=== PATIENT | male | born 1985 | race Caucasian/White ===

== ENCOUNTER 2023-12-11 10:21 | Emergency (ER) | payer OTHER, SELFPAY ==
[2023-12-11] VITALS (8 sets, daily range): BP systolic 101–136; BP diastolic 52–80; PULSE 82–119; RESP 15–18; TEMP 36.5–36.8; O2SAT 95–98; BMI 21.9
--- NOTE | 2023-12-11 10:27 | PC.NURSE ---
Spouse at BS
--- NOTE | 2023-12-11 10:30 | PC.NURSE ---
PT PROVIDED PEANUT BUTTER, CRACKERS, CHIPS, OJ AND PEPSI. TOLERATING WELL. AT BEDSIDE. CALL LIGHT WITHIN REACH
--- NOTE | 2023-12-11 10:38 | ECG_ITS ---
APPROVED REPORT Exam: Resting ECG HR:103 bpm ECG Measurements Heart Rate 103 AXES HI 172 P 31 QRSd 87 QRS 55 QT 328 T 40 QTc 388 Conclusion SINUS TACHYCARDIA ABNORMAL RHYTHM ECG Electronically signed by : MICHAELLE LEVI, 12/11/2023 16:56:58
--- NOTE | 2023-12-11 11:00 | PC.NURSE ---
FSBS 65, PT A&O X 4, REPORTS NAUSEA. DR LEVI NOTIFIED. ORDERS FOR D10 @ 50MLS/HR R/V
[2023-12-11] MEDS: DEXTROSE 10 % IN WATER 500 ML 50 ML IV (11:12)
--- NOTE | 2023-12-11 11:32 | HMH.EDGENADL ---
Discharge Plan Disposition Patient Disposition: Home, Self-Care Condition: Good Prescriptions Prescriptions: No Action atorvastatin 10 MG tablet 10 mg PO HS lisinopril 5 MG tablet 5 mg PO DAILY Patient Comments: TAKE 1 TABLET BY MOUTH EVERY DAY insulin detemir U-100 100 UNIT/ML insulin pen 100 units SQ TID Patient Comments: INJECT 80 UNITS UNDER THE SKIN INTO THE APPROPRIATE AREA DIRECTED DAILY. Referrals Follow up/Referrals: Kentrell Ennis [Primary Care Provider] - See instructions Activity Restrictions/Add. Instructions Additional Instructions/Restrictions: You were evaluated in the emergency department today. Please keep a very close eye on your blood sugar at home. Do not take your insulin if you have low blood sugar or if you have not eaten. Follow-up closely with your primary care provider. Let them know that this happened, as they may want to adjust her insulin dosage. Return to the emergency department for new or worsening symptoms, such as recurrence of low blood sugar. Clinical Impressions Clinical Impression: Hypoglycemia Stand Alone Forms Stand Alone Forms: Work/School Release Instructions Patient Instructions: Insulin, DI for Hypoglycemia Discharge ED Provider: Lala Winston General Adult HPI General Chief complaint: Hyper/Hypoglycemia Stated complaint: Hypoglycemia Time Seen by Provider: 12/11/23 10:25 Mode of Arrival: EMS Source of Information: Patient and EMS Limitations: No Limitations Description of Symptoms (Recalled from ER Triage Doc. by RN): PT ARRIVES VIA EMS FOR FSBS 23 AT WORK, EMS REPORTS PT DIAPHORETIC, ALTERED AT SCENE. 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 RECEIVED 2- D50 AMPULES. PT HAS HAD CHANGE IN INSULIN, CURRENTLY ON LANTUS History of Present Illness HPI narrative: This patient is a 38-year-old male with a history of insulin-dependent diabetes presenting to the emergency department for evaluation with concern for hypoglycemia. Patient reports that he took his insulin this morning without eating. He took his normal dose and did not increase the dose. He states that he was fine prior to taking the insulin without any infectious symptoms. His blood sugar change, and he is not sure exactly what happened but he knows he bit his lip. This happened at work. EMS arrived on scene and noted fingerstick glucose was 23. He was given 1 amp of D50 with improvement in his blood glucose, however it dropped again, resulting in him receiving a second amp of D50 en route. Patient states he feels weak and shaky but denies any other concerns or complaints at this time. Related Data Home Medications Medication Instructions Recorded Confirmed atorvastatin 10 mg tablet 10 mg PO HS Cholesterol 02/20/19 02/20/19 insulin detemir U-100 100 unit/mL 100 units SQ TID Diabetes 02/20/19 02/20/19 (3 mL) subcutaneous pen lisinopril 5 mg tablet 5 mg PO DAILY bp 02/20/19 02/20/19 Allergies Allergy/AdvReac Type Severity Reaction Status Date / Time No Known Allergies Allergy Verified 02/20/19 06:18 [facility] Disclaimer: The information contained in this section may have been updated after the patient was seen, as this information can be updated by other users. Social History Smoking Status: Current every day smoker alcohol intake: current alcohol intake frequency: a few times a week current occupational status: employed Travel in the last 8 weeks: None ROS Obtained: Yes All systems reviewed & no additional complaints except as documented Physical Exam General General appearance: alert and in no apparent distress Head Head exam: atraumatic and normocephalic Eye Eye exam: Present normal appearance, PERRL and EOMI ENT ENT exam: Present normal oropharynx, mucous membranes moist, normal external ear exam and other (Superficial laceration on the mucosal aspect of the inside of the lower lip from biting his lip. No loose teeth.) Neck Neck exam: Present normal inspection, full ROM and trachea midline; Absent tenderness Chest Chest inspection: Present normal inspection and symmetric chest wall rise; Absent tenderness Respiratory Respiratory exam: Present normal lung sounds bilaterally; Absent respiratory distress, wheezes, stridor or accessory muscle use Cardiovascular Cardiovascular exam: Present regular rate and normal rhythm Abdominal Exam Abdominal exam: Present soft; Absent distention, tenderness or guarding Extremities Exam Extremities exam: Present normal inspection, full ROM and normal capillary refill; Absent tenderness or edema Back Exam Back exam: Present normal inspection and full ROM; Absent tenderness Neurological Exam Neurological exam: Present alert, oriented X3, CN II-XII intact and normal gait; Absent motor sensory deficit Psychiatric Psychiatric exam: Present normal affect and normal mood Skin Skin exam: Present warm and dry Medical Decision Making Medical Records Medical records reviewed: Yes I reviewed the patient's medical records. [place] Inquiry Pt receiving controlled substance: No Vital Signs: 12/11/23 10:21 12/11/23 10:30 12/11/23 11:00 Temperature 98.2 F Temperature Source Oral Pulse Rate 113 H 111 H Pulse Rate [Apical] 119 H Respiratory Rate 18 17 Blood Pressure 121/73 117/74 Blood Pressure [Right Arm] 136/73 Blood Pressure Mean 84 80 Blood Pressure Mean [Right Arm] 94 Blood Pressure Source [Right Arm] Automatic Cuff Blood Pressure Position Blood Pressure Position [Right Arm] Sitting 02 Sat by Pulse Oximetry 95 96 97 Oxygen Delivery Method Room Air Room Air Room Air 12/11/23 11:30 12/11/23 12:00 12/11/23 13:00 Temperature Temperature Source Pulse Rate 104 H 99 H 97 H Pulse Rate [Apical] Respiratory Rate 16 15 Blood Pressure 105/52 L 105/56 L 101/80 L Blood Pressure [Right Arm] Blood Pressure Mean 69 64 83 Blood Pressure Mean [Right Arm] Blood Pressure Source [Right Arm] Blood Pressure Position Blood Pressure Position [Right Arm] 02 Sat by Pulse Oximetry 97 96 98 Oxygen Delivery Method Room Air Room Air Room Air 12/11/23 13:30 12/11/23 14:34 Temperature 97.7 F Temperature Source Oral Pulse Rate 92 H 82 Pulse Rate [Apical] Respiratory Rate 17 18 Blood Pressure 119/62 109/67 L Blood Pressure [Right Arm] Blood Pressure Mean 79 Blood Pressure Mean [Right Arm] Blood Pressure Source [Right Arm] Blood Pressure Position Sitting Blood Pressure Position [Right Arm] 02 Sat by Pulse Oximetry 97 Oxygen Delivery Method Room Air Room Air Lab Data Lab results reviewed: Yes I reviewed the patient's lab results. Lab Results 12/11/23 10:29: WBC 6.7, RBC 4.10 L, Hgb 13.5 L, Hct 43.2, MCV 105.4 H, MCH 32.9 H, MCHC 31.3 L, RDW 12.8, Plt Count 329, MPV 9.0, Neut % (Auto) 68.8, Lymph % (Auto) 22.1, [place] % (Auto) 7.6, Eos % (Auto) 0.7, Baso % (Auto) 0.8, Neut # (Auto) 4.6, Lymph # (Auto) 1.5, [place] # (Auto) 0.5, Eos # (Auto) 0.1, Baso # (Auto) 0.1, Sodium 141, Potassium 3.4 L, Chloride 109 H, Carbon Dioxide 19 L, Anion Gap 16.4 H, BUN 15, Creatinine 0.80, Estimated Creat Clear 112, Estimated GFR 108, Est GFR ( Amer) 131, Glucose 102 H, Hemoglobin A1c 5.9, Calcium 9.4, Total Bilirubin 0.4, AST 60 H, ALT 69, Alkaline Phosphatase 74, Total Protein 7.1, Albumin 4.3, Globulin 2.8, Albumin/Globulin Ratio 1.5 12/11/23 12:31: Urine Color Yellow, Urine Appearance Clear, Urine pH 6.0, Ur Specific [place] >= 1.030, Urine Protein Trace, Urine Glucose (UA) Trace, Urine Ketones Negative, Urine Blood Negative, Urine Nitrate Negative, Urine Bilirubin Negative, Urine Urobilinogen 1.0, Ur Leukocyte Esterase Negative, Urine RBC None, Urine WBC Occasional, Ur Squamous Epith Cells None, Urine Bacteria Trace, Hyaline Casts Occasional 12/11/23 10:29 12/11/23 10:29 Orders (Tests/Meds): ED MEDICATIONS Discontinued Medications Generic Name Dose Route Start Last Admin Trade Name Freq PRN Reason Stop Dose Admin Dextrose/Water 500 mls @ 50 mls/hr 12/11/23 11:15 12/11/23 11:12 Dextrose 10% In Water 500ml IV 12/11/23 21:14 50 mls/hr .Q10H PRO Administration ORDERS Category Date Time Status Complete Blood Count Auto Diff Stat Lab 12/11/23 10:29 Completed Comprehensive Metabolic Panel Stat Lab 12/11/23 10:29 Completed Hemoglobin A1C Stat Lab 12/11/23 10:29 Completed UA [Urinalysis and Microscopic] Stat Lab 12/11/23 12:31 Completed ECG Data Tracing #1: I reviewed this ECG and interpreted as documented below: Sinus tachycardia with a ventricular rate of [address] changes concerning for ischemia. Normal axis and intervals. ECG initial impression date: 12/11/23 ECG initial impression time: 10:39 Medical Decision Narrative: In summary, this patient is a 38-year-old male presenting to the Emergency Department for evaluation of low blood sugar. Differential diagnoses considered include but are not limited to insulin misuse, sepsis, symptomatic hypoglycemia. Ruling out the most morbid conditions drove assessment. It should be noted patient's history includes insulin-dependent diabetes which may or may not be at goal therapy. This complicates all aspects of care by increasing patient's risk for morbidity. On exam, the patient is alert and oriented and is nontoxic-appearing. He is mildly tachycardic, but otherwise vitals are reassuring on cardiac telemetry. Fingerstick blood glucose upon arrival initially normal, however he dropped again to 60 despite eating and drinking juice. Workup included CBC, CMP, A1c, urinalysis, and EKG. He was started on D10 infusion at 50/h. Labs were obtained that demonstrated mild hypokalemia, mildly elevated anion gap, mildly low CO2. Normal CBC and normal urinalysis. At 1040, patient was placed in ED observation status pending serial fingerstick glucose monitoring to determine whether or not the patient would be appropriate for discharge versus admission. The patient was provided serial reevaluations and cardiac monitoring while awaiting ultimate disposition. On multiple subsequent reassessments, patient is blood glucose remained stable. He is eating and drinking well, and I was able to stop the D50. Blood mucosa remained stable after stopping. I had shared decision-making with the patient and offered admission for continued monitoring, however he states he is ready to go home. He advised that he we will keep a good eye on his blood sugar will come back if things get worse. Given this, patient deemed to be appropriate for discharge via patient directed discharge. He was given instructions to monitor his blood sugar, instructions to avoid taking his insulin without eating, and he was given strict return precautions. He was discharged after all questions were answered. This was at 1430 after 3 hours 50 min in ED observation. Critical Care Critical Care Time Critical Care Time: No
--- NOTE | 2023-12-11 11:35 | PC.NURSE ---
FSBS 149, DR LEVI NOTIFIED. CALL LIGHT WITHIN REACH. NO NEEDS AT THIS TIME. AT BEDSIDE
[2023-12-11 11:44] LABS: Basophils # 0.1 K/mm3 (0-0.2); Basophils % 0.8 % (0.1-2.0); Eosinophils # 0.1 K/mm3 (0.0-0.4); Eosinophils % 0.7 % (0.1-12.0); Hematocrit 43.2 % (42.0-52.0); Hemoglobin 13.5 g/dL (14.1-18.0); Lymphocytes # 1.5 K/mm3 (0.7-4.5); Lymphocytes % 22.1 % (10-50); Mean Corpuscular HGB Conc 31.3 g/dL (31.8-35.4); Mean Corpuscular Hemoglobin 32.9 pg (27.0-31.2); Mean Corpuscular Volume 105.4 fl (80-94); Monocytes # 0.5 K/mm3 (0.1-1.0); Monocytes % 7.6 % (1.7-9.3); Neutrophils # 4.6 K/mm3 (1.8-7.8); Neutrophils % 68.8 % (37.0-80.0); Platelet Count 329 K/mm3 (142-424); Red Cell Distribution Width 12.8 % (11.5-17.5); White Blood Count 6.7 K/mm3 (4.8-10.8)
[2023-12-11 11:45] LABS: Chloride 109 mmol/L (98-107); Potassium 3.4 mmoL/L (3.5-5.1); Sodium 141 mmol/L (136-145)
[2023-12-11 11:48] LABS: Alanine Aminotransferase 69 U/L (12-78); Albumin Level 4.3 g/dl (3.5-5.0); Albumin/Globulin Ratio 1.5 (1.1-1.8); Alkaline Phosphatase 74 U/L (38-126); Anion Gap 16.4 mEq/L (5-15); Aspartate Amino Transferase 60 U/L (17-59); Bilirubin,Total 0.4 mg/dl (0.2-1.3); Blood Urea Nitrogen 15 mg/dl (9-20); Carbon Dioxide 19 mmol/L (22.0-30.0); Creatinine Clearance Estimated 112 mL/min (50-200); Estimated Glomerular Filt Rate 108 ml/min (>60); GFR (African American) 131 ML/MIN (>60); Globulin 2.8 g/dL (1.3-3.2); Total Protein,Serum 7.1 g/dl (6.3-8.2)
[2023-12-11 11:49] LABS: Calcium 9.4 mg/dl (8.4-10.2); Glucose 102 mg/dl (74-100)
--- NOTE | 2023-12-11 12:08 | PC.NURSE ---
FSBS 138, DR LEVI NOTIFIED
[2023-12-11 12:35] LABS: Microscopic, Urine URINE MICROSCOPIC (MICROSCOPIC)
[2023-12-11 12:38] LABS: Appearance,Urine CLEAR (Clear); Bilirubin,Urine Negative (Negative); Blood, Urine Negative (Negative); Color,Urine YELLOW (Yellow); Glucose,Urine (UA) TRACE (Negative); Ketones,Urine Negative (Negative); Leukocyte Esterase,Urine Negative (Negative); Nitrate,Urine Negative (Negative); Protein,Urine TRACE (Negative); Specific Gravity, Urine >= 1.030 (1.005-1.030)
[2023-12-11 12:39] LABS: Hemoglobin A1C 5.9 % (4.0-6.0)
--- NOTE | 2023-12-11 13:05 | PC.NURSE ---
IVF'S STOPPED AT THIS TIME. PT SITTING ON SIDE OF BED, TOLERATING REGULAR DIET TRAY
[2023-12-11 13:10] LABS: Bacteria,Urine Trace /lpf; WBC,Urine Occasional #/hpf (0-3)
[2023-12-11 13:11] LABS: Hyaline Casts,Urine Occasional #/lpf (0)
== END 2023-12-11 14:52 | disposition home or self-care (01) ==
PROVIDERS: Emergency Provider Emergency Medicine; PCP Family Medicine
DX: E11.649 Type 2 diabetes mellitus with hypoglycemia without coma (principal); R53.1 Weakness; F17.210 Nicotine dependence, cigarettes, uncomplicated; S01.511A Laceration without foreign body of lip, initial encounter; R00.0 Tachycardia, unspecified; Z79.4 Long term (current) use of insulin; X58.XXXA Exposure to other specified factors, initial encounter
CPT/HCPCS: 80053; 81001; 83036; 85025; 93005; 96365; 96366; 99285

== ENCOUNTER 2024-04-05 15:48 | Outpatient (CLI) | payer OTHER, SELFPAY ==
[2024-04-06 10:13] LABS: Testosterone,Total 421 ng/dL (264-916)
== END 2024-04-05 23:59 | disposition home or self-care (01) ==
LOC: LAB 15:49
PROVIDERS: PCP Family Medicine; Visit Provider Family Medicine
DX: E29.1 Testicular hypofunction (principal)
CPT/HCPCS: 36415; 84403

== ENCOUNTER 2024-12-20 09:10 | Emergency (ER) | payer OTHER, SELFPAY ==
--- OUTSIDE RECORDS SUMMARY | 2021-07-20 08:16 | XMS_ITS | Encounter Summary ---
[facility] Address [address] [place] [address] Care Team Providers Care Software Systems Architect Name Role Phone Kentrell Ennis MD Primary Care Provider [phone] Reason for Referral * Hospital - Outpatient (Routine) - Closed Specialty Diagnoses / Procedures Referred By Contac t Referred To Contact Sleep Medicine Diagnoses Observed sleep apnea Snoring Daytime hypersomnolence Procedures Home Sleep Study Kentrell Ennis MD [address] [place] [address] Phone: tel: fax: Ralph Oh MD Phone: tel: fax: Referral ID Status Reason Start Date Expiration Date Visits Re quested Visits Authorized [id number] Closed 06/29/2021 08/27/2021 1 1 Reason for Visit * Hospital - Outpatient (Routine) - Closed Specialty Diagnoses / Procedures Referred By Contac t Referred To Contact Sleep Medicine Diagnoses Observed sleep apnea Snoring Daytime hypersomnolence Procedures Home Sleep Study Kentrell Ennis MD [address] [place] [address] Phone: tel: fax: Ralph Oh MD Phone: tel: fax: Referral ID Status Reason Start Date Expiration Date Visits Re quested Visits Authorized [id number] Closed 06/29/2021 08/27/2021 1 1 Encounter Details Date Type Department Care Team (Latest Contact Info) Description 07/20/2021 7:16 AM EST Hospital Encounter [facility] [address] [place] [address] Kentrell Ennis MD [address] [place] [address] Observed sleep apnea; Snoring; Daytime hypersomnolence Social History Tobacco Use Types Packs/Day Years Used Date Smoking Tobacco: Former Cigarettes 1 13 2 2019 Smokeless Tobacco: Never Alcohol Use Standard Drinks/Week Comments Yes 4 (1 standard drink = 0.6 oz pur e alcohol) up to 24 ilana=s/week PHQ-2 Answer Date Recorded Retired PHQ-9: Brief Depression Severity Measure Score 0 06/02/2022 PHQ-2 Answer Date Recorded Patient Health Questionnaire-2 Score 0 10/11/2024 Sex and Gender Information Value Date Recorded Sex Assigned at Not on file Legal Sex Male 12:04 PM EDT Gender Identity Not on file Sexual Orientation Not on file 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 Not on file Not on file Not on file documented as of this encounter Last Filed Vital Signs Vital Sign Reading Time Taken Comments Blood Pressure - - Pulse - - Temperature - - Respiratory Rate - - Oxygen Saturation - - Inhaled Oxygen Concentration - - Weight 78.5 kg (173 lb) 07/20/2021 7:25 AM EST Height 170.2 cm (5' 7 ) 07/20/2021 7:25 AM EST Body Mass Index 27.1 07/20/2021 7:25 AM EST documented in this encounter Functional Status documented as of this encounter Plan of Treatment Upcoming Encounters Date Type Department Care Team (Late st Contact Info) Description 01/17/2025 3:15 PM EDT Office Visit [facility] [address] [place] [id number] Kentrell Ennis MD [address] [place] [address] documented as of this encounter Procedures Procedure Name Priority Date/Time Associated Diagnosis Comments WATCHPAT Routine 07/22/2021 4:05 AM EST Observed sleep apnea Snoring Daytime hypersomnolence documented in this encounter Results * WATCHPAT (07/22/2021 4:05 AM EST) Narrative Ralph Oh MD - 07/22/2021 8:13 PM EST Polysomnography Report Patient Name: Dhaval Flores Interpreting Physician: Ralph Oh MD Date of : 1985 Referring Physician: No info available Primary Care Physician: Kentrell Ennis MD Date of Study: Clinical Information 36-year-old male followed by Dr. Ennis for type 2 diabetes mellitus, hypertension, and dyslipidemia. His noted that he was snoring and had apneas. Daytime somnolence was described. A home sleep apnea test was ordered by Dr. Ennis to further investigate the possibility of JOANNE. Methods used for Home Sleep Testing: Patient had a home sleep test using an WatchPat device that uses peripheral arterial tone to measure arterial volume changes at the fingertip showing sympathetic nervous system activation. Sleep stages are determined based on signal characteristics and built in actigraphy can help determine sleep/wake periods. Both signal attenuation and pulse rate determine arousals correlating with respiratory events, and the pulse oximeter sensor determines blood oxygen saturations. Snoring and body position is determined through an intergrated sensor measuring decibals and actigraphy. Home Sleep Testing Results TOTAL RECORDING TIME: Total Recording Time (TIB) (min): 424 minutes TOTAL MONITORING TIME: Total Sleep Time (TST)(min): 328 minutes SLEEP LATENCY: Sleep Latency (min): 11 Respiratory Data OBSTRUCTIVE APNEA INDEX No data recorded OBSTRUCTIVE APNEA TOTAL No data recorded CENTRAL APNEA INDEX Central Apnea Index (#/hr TST): 0.8 CENTRAL APNEA TOTAL Central Apnea Total : 4 MIXED APNEA INDEX No data recorded MIXED APNEA TOTAL No data recorded OBSTRUCTIVE HYPOPNEA INDEX No data recorded OBSTRUCTIVE HYPOPNEA TOTAL No data recorded TOTAL APNEA INDEX No data recorded AHI/GINO: AHI: 35.3 RDI: RDI (if applicable): 35.3 OCCURRENCE OF DAMI GAITAN Occurrence of Dami Gaitan Breathing: no DURATION OF DAMI GAITAN No data recorded Cardiac AVG HR DURING SLEEP Avg HR During Sleep: 72 bpm HIGHEST HR DURING SLEEP Highest HR During Sleep: 102 bpm Oximetry MIN SPO2 Min SpO2: 68 % O2 SATURATION, MEAN VALUE Arterial Oxygen Saturation, Mean Value (%): 92 % Diagnostic Respiratory Index Summary by Body Position Supine AHI/GINO, TOTAL AHI, TOTAL : 42.4 RDI, TOTAL RDI, TOTAL : 42.4 Duration (Min) No data recorded Left AHI/GINO, TOTAL No data recorded RDI, TOTAL No data recorded Duration (Min) No data recorded Right AHI/GINO, TOTAL AHI, TOTAL : 1.1 RDI, TOTAL RDI, TOTAL: 1.1 Duration (Min) No data recorded Prone AHI/GINO, TOTAL No data recorded RDI, TOTAL No data recorded Duration (Min) No data recorded Upright AHI/GINO, TOTAL No data recorded RDI, TOTAL No data recorded Duration (Min) No data recorded Impression: The study was technically adequate with 424 minutes of total recording time. Total sleep time was 5 hours 28 minutes. A 3% oxygen desaturation hypopnea rule was utilized for scoring. The AHI was severely elevated overall at 35.3. The majority of these events were obstructive in nature. The AHI was even higher during REM sleep at 56. Oxygen saturations averaged 90% with minimum saturation of 68% and he spent 19 cumulative minutes with oxygen saturations less than or equal to 88% throughout the night. Significant snoring was noted and the AHI was significantly higher in the supine position. - severe obstructive sleep apnea is present. - Oxygen desaturation is present. - Snoring is present. Plan: - Recommend trial of CPAP such as AutoSet with an 8 cm minimum an 18 cm maximum. - Recommend weight loss. - Recommend the patient avoid alcohol and sedatives close to bedtime. - Due to the severity of his JOANNE, CPAP therapy would be the preferred modality for treatment. Follow-up: The patient will follow up with Dr. Ennis as before for consideration of the above and potential treatment options. Electronically signed by: Ralph Oh MD 07/22/21 20:08 EST us Kentrell nEnis MD SLEEP CENTER ORDERABLES Final R esult documented in this encounter Visit Diagnoses Diagnosis Observed sleep apnea Snoring Other dyspnea and respiratory abnormality Daytime hypersomnolence documented in this encounter Care Teams Software Systems Architect Relationship Specialty Start Date End Date Kentrell Ennis MD [address] [facility] [place] [address] PCP - General Family Medicine 10/16/15 documented as of this encounter
[2024-12-20 09:27] VITALS: BP 139/84; PULSE 87; RESP 14; TEMP 36.9; O2SAT 98; BMI 24.3
--- NOTE | 2024-12-20 09:32 | ED_ITS ---
Discharge Plan Disposition Patient Disposition: Home, Self-Care Condition: Good Prescriptions Prescriptions: New cefadroxil 500 mg capsule 500 mg PO BID 7 Days Qty: 14 0RF oxycodone 5 mg tablet 5 mg PO Q6H PRN (Reason: pain) Qty: 12 0RF No Action atorvastatin 10 MG tablet 10 mg PO HS lisinopril 5 MG tablet 5 mg PO DAILY Patient Comments: TAKE 1 TABLET BY MOUTH EVERY DAY insulin detemir U-100 100 UNIT/ML insulin pen 100 units SQ TID Patient Comments: INJECT 80 UNITS UNDER THE SKIN INTO THE APPROPRIATE AREA DIRECTED DAILY. Referrals Follow up/Referrals: Kentrell Ennis [Primary Care Provider, Medical] - See instructions Activity Restrictions/Add. Instructions Additional Instructions/Restrictions: You are being prescribed a course of antibiotics to help prevent infection. Take this as prescribed until all the pills are gone. You are also being prescribed oxycodone to help with severe pain. You can take Tylenol and ibuprofen for mild to moderate pain, however pain becomes severe you can take the oxycodone. You will be given follow-up with the plastic surgery hand team at [facility]. They will call you at the beginning of next week to schedule an appointment next week, likely on or Monday. Keep the wound clean by washing it with gentle soap and water. If you develop any new or worsening symptoms, such as signs of infection which include increased redness, swelling, pus draining from the wound, fevers, return to the emergency department for evaluation. Clinical Impressions Clinical Impression: Injury of nail bed of finger, Open fracture of tuft of distal phalanx of finger Print Language Print Language: Georgian Discharge ED Provider: Mike Maya General Adult HPI General Chief complaint: Extremity Injury, Upper Stated complaint: right hand index finger Time Seen by Provider: 12/20/24 09:32 History of Present Illness HPI narrative: Dhaval Flores is a 39-year-old male with no significant past medical history who presents to the emergency department for complaints of injury to his right second finger. Patient states that yesterday, he smashed the tip of his right second finger in a ladder. Since then, he has had swelling and pain to the tip of his finger. He is also developed bruising under his fingernail. He does report some numbness and tingling in the tip of his finger. States that is painful to touch. He states that this was a work-related injury so they sent him to the emergency department for evaluation. Related Data Home Medications ?Medication ?Instructions ?Recorded ?Confirmed atorvastatin 10 mg tablet 10 mg PO HS Cholesterol 07/1002/20/19 insulin detemir U-100 100 unit/mL 100 units SQ TID Renetat betes 02/20/19 02/20/19 (3 mL) subcutaneous pen lisinopril 5 mg tablet 5 mg PO DAILY bp 02/20/19 Previous Rx's ?Medication ?Instructions ?Recorded cefadroxil 500 mg capsule 500 mg PO BID 7 days #14 cap s 12/20/24 oxycodone 5 mg tablet 5 mg PO Q6H PRN pain #12 tab s 12/20/24 Allergies Allergy/AdvReac Type Severity Reaction Status Date / Time No Known Allergies Allergy Verified 02/20/19 06:18 [facility] Disclaimer: The information contained in this section may have been updated after the patient was seen, as this information can be updated by other users. Social History Smoking Status: Current every day smoker alcohol intake: current alcohol intake frequency: a few times a week current occupational status: employed Travel in the last 8 weeks?: None Have you lived/traveled outside [place] in past 30 days?: No Contact w/someone who lives/traveled outside US past 30 days?: No Exposure to someone with infectious disease in past 14 days?: No Do you have a fever (greater than 100.4 F or 38 C)?: No Have you tested positive for COVID-19?: No Exposed to someone with COVID-19 in past 14 days?: No Do you have a sore throat?: No Do you have a cough?: No Do you have any weakness?: No Do you have any diarrhea?: No Are you experiencing any unusual bleeding?: No Do you have any muscle aches/pain?: No Do you have any abdominal pain?: No Are you experiencing loss of taste or smell?: No Other Medical History Have you received the Flu Vaccine for this season: No Have you received the Pneumonia Vaccine: No ROS Obtained: Yes Systems reviewed as appropriate & no additional complaints except as documented Physical Exam General General appearance: alert and in no apparent distress Head Head exam: atraumatic Eye Eye exam: Present normal appearance ENT ENT exam: Present normal external ear exam Neck Neck exam: Present full ROM Chest Chest inspection: Present symmetric chest wall rise Respiratory Respiratory exam: Present normal lung sounds bilaterally; Absent respiratory distress Cardiovascular Cardiovascular exam: Present regular rate and normal rhythm Abdominal Exam Abdominal exam: Present soft; Absent tenderness or guarding exam: Present deferred Extremities Exam Extremities exam: Present normal inspection and other (RUE: swelling, ecchymosis, and tenderness over the distal phalanx of the right 2nd digit. Subungual hematoma is present. Neurovascularly intact.) Back Exam Back exam: Present normal inspection Neurological Exam Neurological exam: Present alert and oriented X3 Psychiatric Psychiatric exam: Present normal affect Skin Skin exam: Present warm and dry Medical Decision Making Medical Records Screening: Per USPSTF and CDC recommendations, given the prevalence of disease in our region, it is our hospital?s policy to screen for HIV and viral Hepatitis for all patients aged 18 and over and those with ongoing risk factors. [place] Inquiry Pt receiving controlled substance: Yes [place] was queried for this patient: Yes Risks and benefits of using a controlled substance: were discussed with pt by me Vital Signs: 12/20/24 09:27 12/20/24 10:00 12/20/24 10:20 Temperature 98.5 F Temperature Source Oral Pulse Rate 76 76 Pulse Rate [Left] 87 Respiratory Rate 14 Blood Pressure 116/80 123/83 Blood Pressure [Right Arm] 139/84 Blood Pressure Mean [Right Arm] 102 Blood Pressure Source [Right Arm] Automatic Cuff Blood Pressure Position [Right Arm] Sitting 02 Sat by Pulse Oximetry 98 98 97 Oxygen Delivery Method Room Air Room Air 12/20/24 10:30 12/20/24 12:58 12/20/24 13:00 Temperature 97.8 F Temperature Source Oral Pulse Rate 78 88 91 H Pulse Rate [Left] Respiratory Rate 16 Blood Pressure 125/75 125/75 Blood Pressure [Right Arm] Blood Pressure Mean [Right Arm] Blood Pressure Source [Right Arm] Blood Pressure Position [Right Arm] 02 Sat by Pulse Oximetry 98 99 Oxygen Delivery Method Room Air Room Air Orders (Tests/Meds): ED MEDICATIONS Discontinued Medications Generic Name Dose Route Start Last Admin Trade Name Freq PRN Reason Stop Dose Admin Lidocaine HCl 20 ml 12/20/24 11:56 12/20/24 11:57 Lidocaine 1% 20ml Mdv IJ 12/20/24 11:57 20 ml ONCE ONE Administration Tetanus/Reduced Diphtheria/Acell Pertussis 0.5 ml 12/20/24 11:32 12/20/24 11:45 Tet/Diphth/Pert-Adult 0.5ml Syringe IM 12/20/24 11:33 0.5 ml .ONCE ONE Administration ORDERS Category Date Time Status XR hand RT min 3V Stat Exams 12/20/24 09:43 Completed Medical Decision Narrative: Dhaval Flores is a 39-year-old male with no significant past medical history who presents to the emergency department for complaints of injury to his right second finger. Patient states that yesterday, he smashed the tip of his right second finger in a ladder. Since then, he has had swelling and pain to the tip of his finger. He is also developed bruising under his fingernail. He does report some numbness and tingling in the tip of his finger. States that is painful to touch. He states that this was a work-related injury so they sent him to the emergency department for evaluation. On arrival, patient is hemodynamically stable, in no acute distress, afebrile, in no acute distress. Physical exam is gross unremarkable except for swelling and bruising the distal phalanx of the right second finger. There is a subungual hematoma in this finger. There is significant swelling. Patient is able to mobilize all joint spaces. He has tenderness over the distal phalanx. Physical exam is otherwise grossly unremarkable. Differential diagnosis includes, but is not limited to: Open distal phalanx fracture, subungual hematoma, soft tissue injury, among others. The most morbid conditions were considered and workup was based on these. Workup in the emergency department included: Right hand x-rays. Patient was given Tylenol and ibuprofen for symptomatic relief. X-ray imaging was interpreted by me personally. Patient does have a tuft fracture at the distal phalanx of the right second digit. This is consistent with an open fracture given patient has a subungual hematoma. I spoke with DAVID for recommendations by the hand surgery team. I spoke with Dr. Clements with the [facility] plastic surgery team who recommended nail removal and nailbed repair. They also recommend follow-up in the hand clinic on or Monday of next week and will call the patient early next week to schedule an appointment. Patient was in agreement to have his nailbed repaired at this time. Digital nerve block was performed using injected lidocaine. His nail was removed and there was a small laceration to the nailbed that was repaired using 5-0 fast gut suture. See procedure note for details. Given this, it is felt that patient is appropriate for discharge at this time. I instructed him to follow-up with the plastic surgery hand team at next week and they will likely call him at the beginning of next week to schedule that appointment. He is being sent with a prescription for Duricef as well as oxycodone for severe pain. He was also instructed take Tylenol and ibuprofen for mild to moderate pain. Return precautions were given. All questions were answered. He demonstrated understanding and was in agreement this plan. He was then discharged from the emergency department in stable condition. Procedures Miscellaneous Procedure Procedure Performed: digital nerve block, fingernail removal, nail bed repair, fingernail splint Patient's finger was cleaned using alcohol pad and a digital nerve block was performed using 6 cc of 1% lidocaine. This was injected on the medial, lateral and palmar aspect at the base of the second digit on the right. Adequate anesthesia was obtained. I then performed fingernail removal after the fingernail from the skin of the finger. I then lifted the nail from the nailbed. The subungual hematoma was released. I then removed the fingernail from the finger. It came out whole. I then irrigated the distal end of the finger thoroughly with sterile water and Hibiclens. There was noted to be a less than 1 cm laceration along the nailbed. This was repaired using 5-0 fast- absorbing gut suture. I then cleaned the patient's detached fingernail with sterile water and Hibiclens. The nail was then placed back onto the finger and secured with Dermabond. The patient tolerated the procedure well Critical Care Critical Care Time Critical Care Time: Yes Attestation: On 12/20/24, the high probability of a clinically significant, sudden or life threatening deterioration of the following system(s) required my full and direct attention, intervention and personal management. The time I documented below is in addition to time spent performing reported procedures but includes the following listed in this critical care notation. Total Time Total Critical Care Time: 35
--- OUTSIDE RECORDS SUMMARY | 2024-12-20 09:34 | XMS_ITS | Encounter Summary ---
Author Organization [facility] Address [address] [place] [address] Care Team Providers Care Principal Technical Architect Name Role Phone Unavailable Primary Care Provider Unavailabl e Encounter Details Date Type Department Care Team (Late st Contact Info) Description 11/18/2022 [facility] [address] [place] [address] Venu Austin MD [address] [facility], [address] [address] Obstructive sleep apnea (adult) (pediatric) (Primary Dx) Social History Tobacco Use Types Packs/Day Years Used Date Smoking Tobacco: Never Assessed Sex and Gender Information Value Date Recorded Sex Assigned at Not on file Legal Sex Male 11:41 AM EDT Gender Identity Not on file Sexual Orientation Not on file documented as of this encounter Plan of Treatment Not on file documented as of this encounter Visit Diagnoses Diagnosis Obstructive sleep apnea (adult) (pediatric)- Primary documented in this encounter
--- OUTSIDE RECORDS SUMMARY | 2024-12-20 09:34 | XMS_ITS | Clinical Summary ---
[facility] Address [address] [place] [id number] Care Team Providers Care Manager Reimbursement Name Role Phone Kentrell Ennis MD Primary Care Provider [phone] Allergies Active Allergy Reactions Criticality Noted Date Comments [place] Anaphylaxis High 06/05/2019 Banana Itching 06/01/2019 Itchy throat [place] Itching 06/01/2019 Itchy throat Metformin GI Intolerance Medium 04/27/2018 Numb mouth Medications Insulin Lispro (HumaLOG KwikPen) 200 UNIT/ML solution pen-injectorIndic ations:Type 1 diabetes mellitus with stable proliferative retinopathy of both eyes Inject 10 Units under the skin into the appropriate area as directed 3 (Three) Times a Day. 15 mL 5 4 Active glucose blood test stripIndications: Type 1 diabetes mellitus with stable proliferative retinopathy of both eyes COUNTOUR NEXT test strips, checking 10 times per day 900 each 3 5 Active Continuous Glucose Sensor (Dexcom G7 Sensor) miscIndications:T ype 1 diabetes mellitus with stable proliferative retinopathy of both eyes Use 1 each Every 10 (Ten) Days. 9 each 3 5 Active Insulin Pen Needle (B-D UF III MINI PEN NEEDLES) 31G X 5 MM miscIndications:T ype 1 diabetes mellitus with stable proliferative retinopathy of both eyes USE TWICE DAILY DIRECTED 100 each 11 5 Active lisinopril (PRINIVIL,ZESTRIL ) 5 MG tabletIndications :Type 1 diabetes mellitus with stable proliferative retinopathy of both eyes Take 1 tablet by mouth Daily. 90 tablet 1 5 Active atorvastatin (LIPITOR) 10 MG tabletIndications :Hypercholesterem ia Take 1 tablet by mouth every night at bedtime. 90 tablet 1 5 Active SUMAtriptan (Imitrex) 100 MG tabletIndications :Chronic migraine without aura without status migrainosus, not intractable Take 1 tablet by mouth 1 (One) Time As Needed for Migraine. Take at onset of migraine 9 tablet 5 5 Active Insulin Glargine (LANTUS SOLOSTAR) 100 UNIT/ML injection penIndications:Ty pe 1 diabetes mellitus with stable proliferative retinopathy of both eyes Inject 35 Units under the skin into the appropriate area as directed Daily. 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 01/08/2016 Carpal tunnel syndrome 01/08/2016 Migraine 01/08/2016 Type 1 diabetes mellitus wit h stable proliferative retinopathy of both eyes 01/08/2016 Resolved Problems Problem Noted Date Diagnosed Date Resolved Date Essential hypertension 06/09/201903/21 Pneumonia of right lower lob e due to infectious organism 05/31/2019 12/06/2019 Empyema 05/31/2019 03/13/2020 Erectile dysfunction 01/08/2016 020 Peripheral neuropathy 10/16/20152017 Type 1 diabetes mellitus 10/16/2015 Encounters Date Type Department Care Team Description 10/21/2024 Refill [facility] [address] [phone] Kentrell Ennis MD Type 1 diabetes mellitus with stable proliferative retinopathy of both eyes 10/14/2024 Results Follow-Up [facility] [address] [place] [address] Kentrell Ennis MD 10/11/2024 3:00 PM EDT Office Visit [facility] [address] [place] [address] Kentrell Ennis MD Type 1 diabetes mellitus with stable proliferative retinopathy of both eyes (Primary Dx); Hypercholesteremia; Chronic migraine without aura without status migrainosus, not intractable 10/11/2024 Travel from Last 3 Months Immunizations Immunization Administration Dates Next Due Flublock Quad =>18yrs 03/04/2020 Flublok 18+yrs 03/04/2020 Hepatitis A 11/09/2018,04/27/2018 Hepatitis B 05/01/2020 Hepatitis B Adult/Adolescent IM 05/01/2020 Tdap 03/19/2021 flucelvax quad pfs =>4 YRS 06/09/2019(Deferred: - refusing currently) Family History Medical History Relation Name Comments Other Father fathers history is unknown Crohn's disease Mother Relation Name Status Comments Father Mother Alive Social History Tobacco Use Types Packs/Day Years Used Date Smoking Tobacco: Former Cigarettes 1 13 2 2019 Smokeless Tobacco: Never Tobacco Cessation:Counseling Given: Not Answered Alcohol Use Standard Drinks/Week Comments Yes 4 [...] 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 Not on file Not on file Last Filed Vital Signs Vital Sign Reading Time Taken Comments Blood Pressure 112/70 10/11/2024 2:54 PM EDT Pulse 82 10/11/2024 2:54 PM EDT Temperature 36.6 C (97.8 F) 10/11/2024 2:54 PM EDT Respiratory Rate 18 10/11/2024 2:54 PM EDT Oxygen Saturation 97% 10/11/2024 2:54 PM EDT Inhaled Oxygen Concentration - - Weight 71.2 kg (157 lb) 10/11/2024 2:54 PM EDT Height 170.2 cm (5' 7.01 ) 10/11/2024 2:54 PM ED T Body Mass Index 24.58 10/11/2024 2:54 PM EDT Plan of Treatment Upcoming Encounters Date Type Department Care Team (Late st Contact Info) Description 01/17/2025 3:15 PM EDT Office Visit [facility] [address] [place] [address] Kentrell Ennis MD [address] [place] [address] Health Maintenance Due Date Last Done Comments Pneumococcal Vaccine 0-49 (1 of 2 - PCV) 2004 ANNUAL PHYSICAL 02/03/2016 DIABETIC FOOT EXAM 11/10/2019 11/09/2018, 0 07/07/2017, 07/07/2017, Additional history exists Hepatitis B (2 of 3 - 19+ 3- dose series) 05/29/2020 05/01/2020, 05/01/2020 COVID-19 Vaccine (1 - 2023-2 5 season) 2024 INFLUENZA VACCINE 02/19/2025 03/04/2020, , 03/04/2020, Additional history exists HEMOGLOBIN A1C 04/13/2025 10/11/2024, 06/23, 03/29/2024, Additional history exists URINE MICROALBUMIN-CREATININ E RATIO (uACR) 07/19/2025 07/19/2024 DIABETIC EYE EXAM 09/02/2025 09/02/2024 (Jun rizo-Reported (Performed Externally)), 09/11/2023, 10/04/2021, Additional history exists LIPID PANEL 10/11/2025 10/11/2024, 11/0 12/2023, 03/21/2023, Additional history exists TDAP/TD VACCINES (2 - Td or Tdap) 03/19/2031 021 HEPATITIS C SCREENING Completed 03/19/2021 Procedures Procedure Name Priority Date/Time Associated Diagnosis Comments CBC AND DIFFERENTIAL Routine 10/11/2024 3:21 PM EDT Type 1 diabetes mellitus with stable proliferative retinopathy of both eyes HEMOGLOBIN A1C Routine 10/11/2024 3:21 PM EDT Type 1 diabetes mellitus with stable proliferative retinopathy of both eyes COMPREHENSIVE METABOLIC PANEL Routine 10/11/2024 3:21 PM EDT Type 1 diabetes mellitus with stable proliferative retinopathy of both eyes Hypercholesteremia LIPID PANEL Routine 10/11/2024 3:21 PM EDT Hypercholesteremia POC ALBUMIN/CREATININE RATIO Routine 07/19/2024 4:05 PM EST Type 1 diabetes mellitus with stable proliferative retinopathy of both eyes SCANNED - EYE EXAM 10/04/2021 HEPATITIS C ANTIBODY Routine 03/19/2021 2:25 PM EDT Encounter for hepatitis C screening test for low risk patient SCANNED - INFLUENZA 03/04/2020 from Last 3 Months or Most Recently Relevant to Health Maintenance Results * (ABNORMAL) CBC & Differential (10/11/2024 3:21 PM EDT) Pathologist [facility] WBC 7.2 3.4 - 10.8 x10E3/uL [facility] RBC 4.38 4.14 - 5.80 x10E6/uL [facility] Hemoglobin 14.2 13.0 - 17.7 g/dL [facility] Hematocrit 43.0 37.5 - 51.0 % [facility] MCV 98(H) 79 - 97 fL [facility] MCH 32.4 26.6 - 33.0 pg [facility] MCHC 33.0 31.5 - 35.7 g/dL [facility] RDW 12.1 11.6 - 15.4 % [facility] Platelets 306 150 - 450 x10E3/uL [facility] Neutrophil Rel % 55 Not Estab. % [facility] Lymphocyte Rel % 31 Not Estab. % [facility] Monocyte Rel % 12 Not Estab. % [facility] Eosinophil Rel % 1 Not Estab. % [facility] Basophil Rel % 1 Not Estab. % [facility] Neutrophils Absolute 4.0 1.4 - 7.0 x10E3/uL [facility] Lymphocytes Absolute 2.2 0.7 - 3.1 x10E3/uL [facility] Monocytes Absolute 0.9 0.1 - 0.9 x10E3/uL [facility] Eosinophils Absolute 0.1 0.0 - 0.4 x10E3/uL [facility] Basophils Absolute 0.1 0.0 - 0.2 x10E3/uL [facility] Immature Granulocyte Rel % 0 Not Estab. % [facility] Immature Grans Absolute 0.0 0.0 - 0.1 x10E3/uL [facility] Blood 10/11/2024 3:21 PM EDT 10/11/2024 Narrative [facility] ([facility]) - 10/12/2024 4:07 AM EDT Performed at: [address] [id number] Literacy Coach: Eric Berumen PhD, Phone: [phone] Patient Fasting: Y us Kentrell Ennis MD LAB BLOOD ORDERABLES Final Resu lt Performing Organization Address [facility] de Phone Number [facility] (AMBULATORY) [address] [place] [address], [facility] [address] [place] [address], * (ABNORMAL) Hemoglobin A1c (10/11/2024 3:21 PM EDT) [facility] Hemoglobin A1C 6.2(H) 4.8 - 5.6 % [facility] Comment: Prediabetes: 5.7 - 6.4 Diabetes: >6.4 Glycemic control for adults with diabetes: <7.0 Blood 10/11/2024 3:21 PM EDT 10/11/2024 Narrative [facility] ([facility]) - 10/12/2024 4:07 AM EDT Performed at: [address] [id number] Literacy Coach: Eric Berumen PhD, Phone: [phone] Patient Fasting: Y us Kentrell Ennis MD LAB BLOOD ORDERABLES Final Resu lt Performing Organization Address [facility]/ZIP Co de Phone Number [facility] [address] [place] [address], [place] [phone] [facility] [address] [place] [address], * (ABNORMAL) Lipid Panel (10/11/2024 3:21 PM EDT) Total Cholesterol 212(H) 100 - 199 mg/dL [facility] Triglycerides 54 0 - 149 mg/dL [facility] HDL Cholesterol 116 >39 mg/dL [facility] VLDL Cholesterol Jose 10 5 - 40 mg/dL [facility] LDL Chol Calc (NIH) 86 0 - 99 mg/dL [facility] Blood 10/11/2024 3:21 PM EDT 10/11/2024 N[facility]ative [facility] - 10/12/2024 4:07 AM EDT Performed at: - [address] [id number] Literacy Coach: Eric Berumen PhD, Phone: [phone] Patient Fasting: Y Kentrell Ennis MD LAB BLOOD ORDERABLES Final Resu lt Performing Organization Address City/[facility]/ZIP Co de Phone Number [facility] (AMBULATORY) [address] [place] [address], [place] [phone] [facility] [address] [place] [address], * (ABNORMAL) Comprehensive Metabolic Panel (10/11/2024 3:21 PM EDT) Glucose 61(L) 70 - 99 mg/dL [facility] BUN 16 6 - 20 mg/dL [facility] Creatinine 0.79 0.76 - 1.27 mg/dL [facility] EGFR Result 116 >59 mL/min/1.7 3 [facility] BUN/Creatinine Ratio 20 9 - 20 [facility] Sodium 140 134 - 144 mmol/L [facility] Potassium 4.3 3.5 - 5.2 mmol/L [facility] Chloride 101 96 - 106 mmol/L [facility] Total CO2 25 20 - 29 mmol/L [facility] Calcium 10.0 8.7 - 10.2 mg/dL [facility] Total Protein 7.2 6.0 - 8.5 g/dL [facility] Albumin 4.7 4.1 - 5.1 g/dL [facility] Globulin 2.5 1.5 - 4.5 g/dL [facility] Total Bilirubin 0.4 0.0 - 1.2 mg/dL [facility] Alkaline Phosphatase 92 44 - 121 IU/L [facility] AST (SGOT) 35 0 - 40 IU/L [facility] ALT (SGPT) 34 0 - 44 IU/L [facility] Blood 10/11/2024 3:21 PM EDT 10/11/2024 Narrative [facility] - 10/12/2024 4:07 AM EDT Performed at: [address] [place] [id number] Literacy Coach: Eric Berumen PhD, Phone: [phone] Patient Fasting: Y us Kentrell Ennis MD LAB BLOOD ORDERABLES Final Resu lt [facility]) [address] [place] [address], [place] [phone] [facility] [address] [place] [address], [place] [phone] * (ABNORMAL) POC Albumin/Creatinine Ratio Urine (07/19/2024 4:05 PM EST) POC ALBUMIN, URINE 10 mg/L POC CREATININE, URINE 50 mg/dL POC Urine Albumin Creatinine Ratio 30-300 <30 Lot Number [id number] Expiration Date 02/18/2025 Urine 07/19/2024 4:05 PM EST us Kentrell Ennis MD POINT OF CARE TEST ORDERABLES F inal Result * SCANNED - EYE EXAM (10/04/2021) Anatomical Region Laterality Modality Other us Kentrell Ennis MD CHART REVIEW TABS Final Resu lt * Hepatitis C Antibody (03/19/2021 2:25 PM EDT) Hep C Virus Ab <0.1 0.0 - 0.9 s/co ratio [facility] Comment: Negative: < 0.8 Indeterminate: 0.8 - 0.9 Positive: > 0.9 The CDC recommends that a positive HCV antibody result be followed up with a HCV Nucleic Acid Amplification test (348203). Blood 03/19/2021 2:25 PM EDT 03/19/2021 Narrative [facility] (AMBULATORY) - 03/20/2021 6:08 AM EDT Performed at: - [address] [id number] Literacy Coach: Eric Berumen PhD, Phone: [phone] Patient Fasting: N Kentrell Ennis MD LAB BLOOD ORDERABLES Final Resu lt [facility] ([facility]ULAT[facility]) [address] [place] [address], [facility] [address] [place] [address], * SCANNED - INFLUENZA (03/04/2020) [facility] CHART REVIEW TABS Final Re sult from Last 3 Months or Most Recently Relevant to Health Maintenance Insurance R Advance Directives * CPR (Attempt to Resuscitate) (Latest Code Status on File) Date Activated Date Inactivated Comments 05/31/2019 9:10 PM 06/11/2019 4:20 PM Question Answer Comments Code Status (Patient has no pulse and is not breathing): CPR (Attempt to Resuscitate) Medical Interventions (Patie nt has pulse or is breathing): Full Care Teams Manager Reimbursement Relationship Specialty Start Date End Date Kentrell Ennis MD [address] [place] [address] PCP - General Family Medicine 10/16/15
--- OUTSIDE RECORDS SUMMARY | 2024-12-20 09:34 | XMS_ITS | Encounter Summary ---
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 Not on file Not on file documented as of this encounter Plan of Treatment Upcoming Encounters Date Type Department Care Team (Late st Contact Info) Description 01/17/2025 3:15 PM EDT Office Visit [facility] [address] [place] [phone] Kentrell Ennis MD [address] [place] [address] documented as of this encounter Visit Diagnoses Not on filedocumented in this encounter Care Teams Designer And Patternmaker Relationship Specialty Start Date End Date Kentrell Ennis MD [address] [address] PCP - General Family Medicine 10/16/15 documented as of this encounter
--- OUTSIDE RECORDS SUMMARY | 2024-12-20 09:34 | XMS_ITS | Clinical Summary ---
Author Organization [facility] Address [address] [place] [address] Care Team Providers Care Mail Service Coordinator Name Role Phone Unavailable Primary Care Provider Unavailabl e Social History Tobacco Use Types Packs/Day Years Used Date Smoking Tobacco: Never Assessed Sex and Gender Information Value Date Recorded Sex Assigned at Not on file Legal Sex Male 11:41 AM EDT Gender Identity Not on file Sexual Orientation Not on file Plan of Treatment Not on file
--- OUTSIDE RECORDS SUMMARY | 2024-12-20 09:34 | XMS_ITS | Clinical Summary ---
Author Organization [facility] Address [address] [facility] [address] [place] [address] Phone Care Team Providers Care Grocery Supervisor Name Role Phone Fely Fischer Unavailable Conditions or Problems Problem Name Problem Code Onset Date Status Entry Date Provider Comment Standard Description Annotate Benign Essential Hypertension 4665515 (SNOMED CT) 06/12 Active 06/12 Shreya Graham Benign essential hypertension Group C streptococcus infection 638259883 (SNOMED CT) 06/12 Active 06/12 Shreya Graham Infection by Streptococcus group C DM Type II E11.9 (ICD-10-CM) 06/12 Active 06/12 Shreya Graham Type 2 diabetes mellitus without complications Empyema 848311347 (SNOMED CT) 06/07 Active 06/07 Carmen W Empyema MSSA Infection 938710255 (SNOMED CT) 06/07 Active 06/07 Carmen W Infection by methicillin sensitive Staphylococcus aureus Strep anginosis infection [id number] 109 (SNOMED CT) 06/07 Active 06/07 Carmen W Infection caused by Streptococcus viridans group Medications Medication Instructions Start Date Stop Date Generic Name [facility] Provider CEFTRIAXONE SODIUM 2 GM SOLR 2gm IV Q24hrs/ OPAT CEFTRIAXONE SODIUM [id number] Shanelle Wallace RN AMOXICILLIN-POT CLAVULANATE 875-125 MG TABS one po bid AMOXICILLIN-POT CLAVULANATE [id number] Alex Oliveira MD LEVEMIR 100 UNIT/ML SUBCUTANEOUS SOLUTION as instructed INSULIN DETEMIR [id number] Fely Fischer LIPITOR 10 MG TABS Take 1 tablet by mouth daily at night ATORVASTATIN CALCIUM 31585360474 Fely Fischer IMITREX 100 MG TABS take at onset of migraine SUMATRIPTAN SUCCINATE 73569526854 Fely Fischer NORCO 7.5-325 MG ORAL TABLET 1 tablet every 4 hours as needed HYDROCODONE-EDGAR TAMINOPHEN 61336517866 Fely Fischer CEFTRIAXONE SODIUM 2 GM SOLR 2gm IV Q24hrs/ OPAT CEFTRIAXONE SODIUM 02665742581 Chastity Adam RN Medications Administered No information available. Allergies, Adverse Reactions, Alerts Allergy Name Reaction Description Start Date Severity Statu s Provider METFORMIN Moderate Active Fely Par ker COCONUT Moderate Active Fely Par ker BANANA Moderate Active Fely Par ker ALMOND Moderate Active Fely Par ker Results Date Name Value Unit Range Flag Description Clinical Lists Update: Prelo ad HGBA1C 8.30 % Hemoglobin A1c/Hemoglobin, total in Blood - % Lab Report: CBC WITH AUTO DI FFERENTIAL ZZ-GE-[id number] 0.0 /100 WBC 0.0-0.2 GE use only - for LinkLogic import when terms are not otherwise specified IMMATUREGRAN 0.01 10*3/MM3 0.00-0.05 Immature granulocytes [#/volume] in Blood BASO# 0.05 10*3/mm3 0.00-0.20 Basophils [#/vol ume] in Blood EOS ABSLT 0.22 10*3/uL 0.00-0.40 Eosinophi ls [#/volume] in Blood MONOSCT AUTO 0.68 10*3/uL 0.10-0.90 Monocy abby [#/volume] in Blood by Automated count LYMPHCT AUTO 1.40 10*3/mm3 0.70-3.10 Lymph ocytes [#/volume] in Blood by Automated count ABS NEUTROPH 2.09 10*3/uL 1.70-7.00 Neutro phils [#/volume] in Blood IMM GRANU % 0.2 % 0.0-0.5 Immature granulocytes/100 leukocytes in Blood % EOS AUTO 4.9 % 0.3-6.2 Eosinophil s/100 leukocytes in Blood by Automated count MONOCYTE % 15.3 % 5.0-12.0 H Monocytes /100 leukocytes in Blood by Automated count LYMPHOCY BF 31.5 % 19.6-45.3 lymphoc ytes as percent of body fluid leukocytes NEUTROP BF 47.0 % 42.7-76.0 Neutroph ils/100 leukocytes in Body fluid PLATELETS 303 10*3/mm3 140-450 Platelets [#/volume] in Blood by Automated count RDW 14.1 % 12.3-15.4 Erythrocyte distribution width [Ratio] by Automated count MCHC 30.6 G/DL 31.5-35.7 L MCHC [Mass/ volume] by Automated count MCH 26.0 pg 26.6-33.0 L MCH [Entiti c mass] by Automated count MCV 85.0 fL 79.0-97.0 MCV [Entiti c volume] by Automated count HCT 31.7 % 37.5-51.0 L Hematocrit [Volume Fraction] of Blood by Automated count HGB 9.7 g/dL 13.0-17.7 L Hemoglobin [Mass/volume] in Blood RBC 3.73 10*6/mm3 4.14-5.80 L Erythrocyt es [#/volume] in Blood by Automated count WBC 4.45 10*3/mm3 3.40-10.8 0 Leukocytes [#/volume] in Blood by Automated count Lab Report: SEDIMENTATION RA TE ESR 34 mm/h 0-15 H Erythrocyte sedimentation rate by Westergren method Lab Report: C-REACTIVE PROTE IN CRP 1.26 mg/dL 0.00-0.50 H C reactive protein [Mass/volume] in Serum or Plasma Lab Report: COMPREHENSIVE ME TABOLIC PANEL ANIONGAP 10.0 mmol/L 5.0-15.0 anion gap, serum BUN/CREAT 18.5 7.0-25.0 Urea nitrogen/Creatinine [Mass Ratio] in Serum or Plasma GFRC 141 mL/min/1 .73m2 >60 Glomerular Filtration Rate Calculation BILI TOTAL 0.2 mg/dL 0.2-1.2 Bilirubin. total [Mass/volume] in Serum or Plasma ALK PHOS 116 U/L 39-117 Alkaline livan sphatase [Enzymatic activity/volume] in Blood SGOT (AST) 26 U/L 1-40 Aspartate aminotransferase [Enzymatic activity/volume] in Serum or Plasma SGPT (ALT) 35 U/L 1-41 Alanine aminotransferase [Enzymatic activity/volume] in Serum or Plasma ALBUMIN 4.20 g/dL 3.50-5.20 Albumin [Mass/volume] in Serum or Plasma PROTEIN, TOT 7.8 g/dL 6.0-8.5 Protein [Mass/volume] in Serum or Plasma CALCIUM 9.3 mg/dL 8.6-10.5 Calcium [Moles/volume] in Serum or Plasma CO2 26.0 mmol/L 22.0-29.0 Carbon diox curry, total [Moles/volume] in Venous blood CHLORIDE 97 mmol/L 98-107 L Chloride [Moles/volume] in Serum or Plasma POTASSIUM 4.8 mmol/L 3.5-5.2 Potassium [Moles/volume] in Serum or Plasma SODIUM 133 mmol/L 136-145 L Sodium [Moles/volume] in Serum or Plasma CREATININE 0.65 mg/dL 0.76-1.27 L Creatini ne [Mass/volume] in Serum or Plasma BUN 12 mg/dL 6-20 Urea nitrogen [Mass/volume] in Serum or Plasma GLUCOSE SER 262 mg/dL 65-99 H Glucose [Mass/volume] in Serum or Plasma Office Visit: rm 1 ORALTOBACUSE Never Tobacco smoking status CIGARET SMKG yes Tobacco smoking status SMOK STATUS Current every day smoker Tobacco smoking status Clinical Lists Update MEDS REVIEW Done Documenta tion of current medications (procedure) Plan of Care Type Date Detail Pending order STAT Labs Pending order CMP Pending order CBC with Differe ntial Pending order C- reactive prot ein Pending order Sedimentation Ra te (ESR) Pending order X-Ray, Chest, PA & Lateral Pending order STAT Labs Pending order CMP Pending order CBC with Differe ntial Pending order C- reactive prot ein Pending order Sedimentation Ra te (ESR) Pending order STAT Labs Pending order CMP Pending order CBC with Differe ntial Pending order C- reactive prot ein Pending order Sedimentation Ra te (ESR) Pending order Stat Weekly Labs Pending order Ceftriaxone Patient education Ceftriaxone%20 (Injection)%20(Injectable) Procedures Code Procedure Name Date Entry Date CPT-sl STAT Labs CPT-11378 CMP [id number] CBC with Differential 2019 CPT-55380 C- reactive protein CPT-43380 Sedimentation Rate (ESR) 202 CPT-21115 X-Ray, Chest, PA & Lateral 2 CPT-sl STAT Labs CPT-25594 CMP [id number] CBC with Differential 2019 CPT-80136 C- reactive protein CPT-21196 Sedimentation Rate (ESR) 202 CPT-sl STAT Labs CPT-63039 CMP [id number] CBC with Differential 2019 CPT-16701 C- reactive protein CPT-16268 Sedimentation Rate (ESR) 202 CPT- stat weekly Stat Weekly Labs CPT-J0696 Ceftriaxone Vital Signs Date Name Value Unit Description BMI (Body Mass Index) 23.33 kg/m2 Bod y Mass Index (Ratio) Body Temperature 98.1 [degF] temperat ure E&M BP Diastolic 68 mm[Hg] blood pressu re, diastolic BP Systolic 110 mm[Hg] blood pressur e, systolic Heart Rate 76 /min pulse rate Respiratory Rate 14 /min respirat ory rate E&M Weight Measured 149.0 [lb_av] weight E& M Weight Measured 149.0 [lb_av] weight E& M Height 67 [in_us] height E&M Immunizations No information available. Advance Directives Directive Description Start Date NONE AT THIS TIME
--- OUTSIDE RECORDS SUMMARY | 2024-12-20 09:34 | XMS_ITS | Encounter Summary ---
Author Organization [facility] Address [address] [place] [address] Care Team Providers Care Back Roll Lathe Operator Name Role Phone Kentrell Ennis MD Primary Care Provider [phone] Reason for Visit * Reason Onset Date Comments Med Refill 10/21/2024 Encounter Details Date Type Department Care Team (Late st Contact Info) Description 10/21/2024 Refill [facility] [address] [place] [phone] Kentrell Ennis MD [address] [place] [address] Type 1 diabetes mellitus with stable proliferative retinopathy of both eyes Social History Tobacco Use Types Packs/Day Years [...] 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 Not on file Not on file documented as of this encounter Plan of Treatment Upcoming Encounters Date Type Department Care Team (Late st Contact Info) Description 01/17/2025 3:15 PM EDT Office Visit [facility] [address] [place] [phone] Kentrell Ennis MD [address] [place] [address] documented as of this encounter Visit Diagnoses Diagnosis Type 1 diabetes mellitus with stable proliferative retinopathy of both eyes documented in this encounter Care Teams Back Roll Lathe Operator Relationship Specialty Start Date End Date Kentrell Ennis MD [address] [place] [address] PCP - General Family Medicine 10/16/15 documented as of this encounter
--- OUTSIDE RECORDS SUMMARY | 2024-12-20 09:34 | XMS_ITS | Encounter Summary ---
[facility] Address [address] [place] [address] Care Team Providers Care Adjudication Specialist Name Role Phone Kentrell Ennis MD Primary Care Provider [phone] Reason for Visit * Reason Comments Med Refill Encounter Details Date Type Department Care Team (Late st Contact Info) Description 08/22/2024 Refill [facility] [address] [place] [address] Kentrell Ennis MD [address] [place] [address] Type 1 diabetes mellitus with [...] Score 0 06/02/2022 PHQ-2 Answer Date Recorded Retired PHQ-9: Brief Depression Severity Measure Score 0 06/23/2023 Sex and Gender Information Value Date Recorded Sex Assigned at Not on file Legal Sex Male 12:04 PM EDT Gender Identity Not on file Sexual Orientation Not on file 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 Not on file Not on file Not on file documented as of this encounter Plan of Treatment Upcoming Encounters Date Type Department Care Team (Late st Contact Info) Description 01/17/2025 3:15 PM EDT Office Visit [facility] [address] [place] [id number] Kentrell Ennis MD [address] [place] [address] documented as of this encounter Visit Diagnoses Diagnosis 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
--- OUTSIDE RECORDS SUMMARY | 2024-12-20 09:34 | XMS_ITS | Clinical Summary ---
Author Organization [facility] Address [address] [place] [address], [address] [place] [address] Care Team Providers Care Boiler Control Room Operator Name Role Phone Unavailable Primary Care Provider Unavailabl e Social History Tobacco Use Types Packs/Day Years Used Date Smoking Tobacco: Never Assessed Sex and Gender Information Value Date Recorded Sex Assigned at Not on file Legal Sex Male 6:09 PM EST Gender Identity Not on file Sexual Orientation Not on file Plan of Treatment Not on file Advance Directives Documents on File Type Date Recorded Patient Compliance Mgr Expl anation ACP-Advance Directive 12/14/2015 ACP-[employer]vance Directive 12/12/2015 [employer]vance Directive 12/12/2015 ACP-Advance Directive 12/11/2015 ACP-Advance Directive 12/07/2015
--- NOTE | 2024-12-20 09:43 | XR_ITS ---
FINAL REPORT TECHNIQUE: 3 views right hand CLINICAL HISTORY: Right index finger injury COMPARISON: None FINDINGS: RIGHT HAND: 3 images of the right hand were obtained. There is a comminuted fracture of the distal tuft of the second finger. Associated mild soft tissue swelling is noted. The joint spaces are intact. There is an old fracture deformity of the distal fifth metacarpal. No radiopaque foreign body is identified. IMPRESSION: Comminuted fracture of the distal tuft of the second finger with associated soft tissue swelling. Reviewed, Interpreted and Dictated by Ingrid Allen MD Transcribed by Dary Argueta Authenticated and [facility]
[2024-12-20 10:00] VITALS: BP 116/80; PULSE 76; O2SAT 98
[2024-12-20 10:20] VITALS: BP 123/83; PULSE 76; O2SAT 97
[2024-12-20 10:30] VITALS: PULSE 78; O2SAT 98
--- NOTE | 2024-12-20 11:12 | PC.NURSE ---
Called [facility] per Dr Maya for a hand consult on this patient.
--- NOTE | 2024-12-20 11:29 | PC.NURSE ---
Dr Maya speaking w/ [facility]
--- NOTE | 2024-12-20 11:41 | PC.NURSE ---
Dr Maya updating pt on POC
[2024-12-20] MEDS: TET/DIPHTH/PERT-ADULT 0.5ML SYRINGE 0.5 ML IM (11:45)
[2024-12-20] MEDS: LIDOCAINE 1% 20ML MDV 20 ML IJ (11:57)
--- NOTE | 2024-12-20 12:20 | PC.NURSE ---
Dr. Maya @ bedside
[2024-12-20 12:58] VITALS: BP 125/75; PULSE 88; RESP 16; TEMP 36.6; O2SAT 98
[2024-12-20 13:00] VITALS: BP 125/75; PULSE 91; O2SAT 99
== END 2024-12-20 13:06 | disposition home or self-care (01) ==
PROVIDERS: Emergency Provider Student in an Organized Health Care Education/Training Program; PCP Family Medicine
DX: S62.630B Displaced fracture of distal phalanx of right index finger, initial encounter for open fracture (principal); S67.190A Crushing injury of right index finger, initial encounter; W23.0XXA Caught, crushed, jammed, or pinched between moving objects, initial encounter; Z23 Encounter for immunization
CPT/HCPCS: 11750; 73130; 90471; 90715; 99284